=== PATIENT | male | born 1950 | race Caucasian/White ===

== ENCOUNTER 2024-01-26 13:24 | Day surgery (SDC) | payer OTHER ==
[2024-01-26] MEDS ORDERED: BUPIVACAINE 0.5% VIAL IJ ONE (13:25)
[2024-01-26] MEDS ORDERED: Depo-Medrol 40 MG/ML IM ONE (13:25)
[2024-01-26] MEDS ORDERED: DIPRIVAN 200 MG/20 ML IV ONE ×2 (14:35→15:01)
[2024-01-26] MEDS ORDERED: Lactated Ringers 1,000 ML IV ONE (15:38)
--- NOTE | 2024-01-26 16:49 | XRAY ---
Indication: Right hip injection. Intraoperative fluoroscopy provided for 8 seconds. Single digital spot images submitted for interpretation demonstrates needle tip projecting lateral to right femur neck. Small amount of contrast injected for needle tip placement. Correlate with intraoperative findings/report.
--- NOTE | 2024-01-26 17:09 | XRAY ---
8 seconds of fluoroscopy was used in surgery for a right intra-articular hip injection.
== END 2024-01-26 15:28 | disposition home or self-care (01) ==
LOC: SDC-PAIN 13:24
PROVIDERS: ATTEND Psychiatry & Neurology Pain Medicine
DX: M16.11 Unilateral primary osteoarthritis, right hip (principal)
CPT/HCPCS: 20610; 73501; 77002; J2704; Q9966

== ENCOUNTER 2024-03-29 14:25 | Day surgery (SDC) | payer OTHER ==
[2024-03-29] MEDS ORDERED: Depo-Medrol 40 MG/ML IM ONE (14:26)
[2024-03-29] MEDS ORDERED: Xylocaine-Mpf 2% 5 Ml Vial IJ ONE (14:26)
[2024-03-29] MEDS ORDERED: DIPRIVAN 200 MG/20 ML IV ONE (16:46)
--- NOTE | 2024-03-29 20:53 | XRAY ---
Indication: Bilateral L4-S1 MBB. Intraoperative fluoroscopy provided for 15 second. Single digital spot image submitted for interpretation demonstrates posterior needle tips projecting over expected left and right L4-S1 nerve roots. Correlate with intraoperative findings/report. Incidental bilateral L4-L5 fusion hardware.
--- NOTE | 2024-03-30 09:10 | XRAY ---
15 seconds of fluoroscopy was used in surgery for a bilateral L4-S1 MBB.
== END 2024-03-29 17:15 ==
LOC: SDC-PAIN 14:25
PROVIDERS: ATTEND Psychiatry & Neurology Pain Medicine
DX: M47.816 Spondylosis without myelopathy or radiculopathy, lumbar region (principal)
CPT/HCPCS: 64493; 64494; 72020; 77002; J2704

== ENCOUNTER 2024-06-08 09:18 | Day surgery (SDC) | payer OTHER ==
[2024-06-08] MEDS ORDERED: Depo-Medrol 40 MG/ML IM ONE (09:19)
[2024-06-08] MEDS ORDERED: BUPIVACAINE 0.5% VIAL IJ ONE (09:19)
[2024-06-08] MEDS ORDERED: propofoL IV ONE (10:57)
--- NOTE | 2024-06-08 12:09 | XRAY ---
Indication: Bilateral L4-S1 MBB. Intraoperative fluoroscopy provided for 12 seconds. Single digital spot image submitted for interpretation demonstrates posterior needle tips projecting over expected left and right L4-S1 nerve roots. Correlate with intraoperative findings/report. Incidental bilateral L4-L5 fusion hardware.
--- NOTE | 2024-06-08 12:17 | XRAY ---
12 seconds of fluoroscopy was used in surgery for a bilateral L4-S1 MBB.
== END 2024-06-08 11:40 | disposition home or self-care (01) ==
LOC: SDC-PAIN 09:18
PROVIDERS: ATTEND Psychiatry & Neurology Pain Medicine
DX: M47.816 Spondylosis without myelopathy or radiculopathy, lumbar region (principal)
CPT/HCPCS: 64493; 64494; 72020; 77002; J2704

== ENCOUNTER 2024-07-12 07:15 | Day surgery (SDC) | payer OTHER ==
[2024-07-12] MEDS ORDERED: BUPIVACAINE 0.5% VIAL IJ ONE (07:16)
[2024-07-12] MEDS ORDERED: LIDOCAINE HCL 1% 50 MG/5 ML VL IJ ONE (07:16)
[2024-07-12] MEDS ORDERED: methylPREDNISolone acetate IM ONE (07:16)
[2024-07-12] MEDS ORDERED: Lactated Ringers 500 ML IV ONE (08:16)
[2024-07-12] MEDS ORDERED: propofoL IV ONE (08:55)
--- NOTE | 2024-07-12 10:34 | XRAY ---
Indication: Right L4-S1 RFA. Intraoperative fluoroscopy provided for 27 seconds. 5 digital spot image submitted for interpretation demonstrates posterior needle tips project over expected right L4-S1 nerve roots. Correlate with intraoperative findings/report. Incidental bilateral L4-L5 posterior fusion hardware.
--- NOTE | 2024-07-12 10:38 | XRAY ---
27 seconds of fluoroscopy was used in surgery for a right L4-S1 RFA.
== END 2024-07-12 09:25 | disposition home or self-care (01) ==
LOC: SDC-PAIN 07:15
PROVIDERS: ATTEND Psychiatry & Neurology Pain Medicine
DX: M47.816 Spondylosis without myelopathy or radiculopathy, lumbar region (principal)
CPT/HCPCS: 64635; 64636; 72100; 77002; 99100; J1010; J2704

== ENCOUNTER 2024-07-26 10:42 | Day surgery (SDC) | payer OTHER ==
[2024-07-26] MEDS ORDERED: LIDOCAINE HCL 1% AMPUL 5 ML IJ ONE (10:43)
[2024-07-26] MEDS ORDERED: BUPIVACAINE 0.5% VIAL IJ ONE (10:43)
[2024-07-26] MEDS ORDERED: Depo-Medrol 40 MG/ML IM ONE (10:43)
[2024-07-26] MEDS ORDERED: Lactated Ringers 500 ML IV ONE (11:07)
[2024-07-26] MEDS ORDERED: propofoL IV ONE (12:34)
--- NOTE | 2024-07-26 13:33 | XRAY ---
Indication: Left L4-S1 RFA. Intraoperative fluoroscopy provided for 22 seconds. 4 digital spot image submitted for interpretation demonstrates posterior needle tips projecting over expected left L4-S1 nerve roots. Correlate with intraoperative findings/report. Incidental bilateral L4-L5 fusion hardware.
--- NOTE | 2024-07-26 14:44 | XRAY ---
22 seconds of fluoroscopy was used in surgery for a left L4-S1 RFA.
== END 2024-07-26 13:10 | disposition home or self-care (01) ==
LOC: SDC-PAIN 10:42
PROVIDERS: ATTEND Psychiatry & Neurology Pain Medicine
DX: M47.817 Spondylosis without myelopathy or radiculopathy, lumbosacral region (principal)
CPT/HCPCS: 64635; 64636; 72100; 77002; 99100; J2704

== ENCOUNTER 2024-08-30 15:58 | Day surgery (SDC) | payer OTHER ==
[2024-08-30] MEDS ORDERED: Depo-Medrol 40 MG/ML IM ONE (15:59)
[2024-08-30] MEDS ORDERED: LIDOCAINE HCL 1% AMPUL 5 ML IJ ONE (15:59)
[2024-08-30] MEDS ORDERED: BUPIVACAINE 0.5% VIAL IJ ONE (15:59)
--- NOTE | 2024-08-30 20:52 | XRAY ---
Indication: Right hip and greater trochanter bursa injection. Intraoperative fluoroscopy provided for 14 seconds. 2 digital spot image submitted for interpretation demonstrates needle tip projecting lateral to right femur neck. Second needle tip lateral to greater trochanter. Small amount of contrast injected for needle tip placement. Correlate with intraoperative findings/report.
--- NOTE | 2024-08-31 19:24 | XRAY ---
14 seconds of fluoroscopy was used in surgery for a right intra-articular hip and greater trochanteric bursa injection.
== END 2024-08-30 19:15 | disposition home or self-care (01) ==
LOC: SDC-PAIN 15:58
PROVIDERS: ATTEND Psychiatry & Neurology Pain Medicine
DX: M16.11 Unilateral primary osteoarthritis, right hip (principal); M70.61 Trochanteric bursitis, right hip
CPT/HCPCS: 20610; 73502; 77002; Q9966

== ENCOUNTER 2025-01-24 15:46 | Day surgery (SDC) | payer OTHER ==
[2025-01-24] MEDS ORDERED: BUPIVACAINE 0.5% VIAL IJ ONE (15:47)
[2025-01-24] MEDS ORDERED: LIDOCAINE HCL 1% 50 MG/5 ML VL IJ ONE (15:47)
[2025-01-24] MEDS ORDERED: methylPREDNISolone acetate IM ONE (15:47)
--- NOTE | 2025-01-24 19:49 | XRAY ---
Indication: Right hip and right SI joint injection. Intraoperative fluoroscopy provided for 40 seconds. 2 digital spot images obtained prone submitted for interpretation demonstrates needle tip lateral to right femur neck. Second needle tip over right SI joint appears small amount of contrast injected for needle tip placement. Correlate with intraoperative findings/report.
--- NOTE | 2025-01-24 19:51 | XRAY ---
40 seconds of fluoroscopy used in surgery for a right intra-articular hip injection and right sacroiliac joint injection.
== END 2025-01-24 17:40 | disposition home or self-care (01) ==
LOC: SDC-PAIN 15:46
PROVIDERS: ATTEND Psychiatry & Neurology Pain Medicine
DX: M46.1 Sacroiliitis, not elsewhere classified (principal); M16.11 Unilateral primary osteoarthritis, right hip